=== PATIENT | male | born 1970 | race American Indian/Alaskan Native ===

== ENCOUNTER 2016-11-19 09:20 | Day surgery (SDC) | payer MEDICARE ==
[2016-11-19] MEDS ORDERED: DIPRIVAN 10 MG/ML IV ONE ×3 (09:59→12:20)
[2016-11-19] MEDS ORDERED: NACL 0.9% 1000 ML 1,000 ML IV SCH (10:00)
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
--- NOTE | 2016-11-19 10:09 | Anesthesia Day of Surgery ---
Anesthesia Day of Surgery - Day of Surgery Patient Examined: Yes Patient H&P Reviewed: Yes Patient is NPO: Yes
[2016-11-19] MEDS ORDERED: WATER FOR IRRIG STERILE IR ONE (10:24)
--- NOTE | 2016-11-19 12:39 | Operative Report ---
Operative Report Operative Report: Date of procedure: 11/19/2016 Procedure: Colonoscopy with multiple hot biopsy polypectomies and also multiple polyp ablations Attending physician: Michael Castillo MD Bottle Dealer: Michael Castillo MD Indication: Patient is a 46-year-old male who presents with a family history of colorectal cancer. A colonoscopy is done to assess patient so that treatment may be directed based on findings. Consent: Informed consent was obtained after advising the patient and family regarding nature of this procedure, its indications, potential benefits as well as possible complications including but not limited to bleeding perforation and adverse reaction to medication, infection as well as other cardiopulmonary complications. An informed written and verbal consent was then obtained after due opportunity was provided for questions and answers. Monitoring: Patient was monitored continuously with pulse oximetry and electrocardiographic recordings as well as blood pressure recordings. Vital signs remained stable throughout this procedure with no untoward events. Preoperative assessment: Patient was assessed immediately prior to this procedure for capacity to tolerate monitored anesthesia care and moderate sedation as well as general anesthesia. Patient's ASA classification is 2, Mallampati class is 2, Hyomental distance is 3. Instrument: [employer] videocolonoscope Medications: Propofol given intravenously in divided doses. For details please refer to anesthesia records. Description of procedure: Patient was placed in the left lateral decubitus position after achieving sedation, a digital rectal examination was performed following which the colonoscope was introduced into the anal verge and advanced to the cecum which was identified by the cecal valve, the appendiceal orifice, as well as by the cecal strap and direct transillumination. The colonoscope was subsequently withdrawn with careful inspection of all mucosal surfaces. Patient tolerated this procedure well and was subsequently taken to the recovery room. The following findings were noted. Findings: There was densely adherent thick liquid stool in the cecum and ascending colon. This made visualization of this area is very difficult and in fact suboptimal. There were multiple polyps seen in the descending colon, sigmoid colon and in the rectum. Most of these polyps were removed by hot biopsy polypectomy. About 16 polyp biopsy specimens were obtained from the sigmoid colon. Also multiple polyps removed by hot biopsy from the rectum and the descending colon. Multiple polyps were also ablated in the sigmoid colon and in the rectum. Patient had some residual stool in these areas that made the visualization suboptimal. It is therefore felt that patient may have residual polyps in these areas. On the retroflex view at the anal verge, patient had prominent internal hemorrhoids Impression: Multiple colon polyps status post hot biopsy polypectomy and ablation. Multiple rectal polyps status post hot biopsy polypectomy and ablation. Internal hemorrhoids. Plan: Follow pathology report Consider repeat colonoscopy in 3-6 months. Patient may also need multiple colonoscopies until his colon can be cleared of polyps
[2016-11-19 12:48] VITALS: BP 120/69
--- NOTE | 2016-11-19 13:13 | Discharge Summary ---
Short Stay Discharge Plan Activity: advance as tolerated Weight Bearing Status: Weight Bear as Tolerated Diet: regular Additional Instructions: Post Sedation D/C Instructions When you return home you may resume your regular diet unless otherwise directed. -Go directly home from the hospital and rest quietly. You may resume normal activities tomorrow. -Do NOT drive, return to work, operate any machinery or make any important personal or business decisions today. -Do NOT drink any alcohol or take nerve or sleeping drugs. They add to the effects of the medicine still present in your body. Follow up with Dr. Castillo to obtain pathology results. Follow up with: RAYMOND ANAND MD [Primary Care Provider] - 7 Days
--- NOTE | 2016-11-19 14:03 | Post Anesthesia Evaluation ---
- Post Anesthesia Evaluation Patient Participated: Yes Airway Patent: Yes Stable Respiratory Function: Yes Nausea/Vomiting: No Temp > 96.8F: Yes Pain Manageable: Yes Adequeate Hydration: Yes Anesthesia Complications: No Block Receding Appropriately: Not Applicable Patient on Ventilator: No
== END 2016-11-19 09:21 | disposition home or self-care (01) ==
LOC: GIO 09:20
PROVIDERS: ATTEND Internal Medicine Gastroenterology
DX: Z12.11 Encounter for screening for malignant neoplasm of colon (principal); D12.2 Benign neoplasm of ascending colon; K63.5 Polyp of colon; K62.1 Rectal polyp; K64.8 Other hemorrhoids; F41.9 Anxiety disorder, unspecified; M19.90 Unspecified osteoarthritis, unspecified site; F32.9 Major depressive disorder, single episode, unspecified; I10 Essential (primary) hypertension; K21.9 Gastro-esophageal reflux disease without esophagitis; F07.81 Postconcussional syndrome; Z80.0 Family history of malignant neoplasm of digestive organs; Z82.49 Family history of ischemic heart disease and other diseases of the circulatory system; Z80.3 Family history of malignant neoplasm of breast; Z80.42 Family history of malignant neoplasm of prostate; Z98.41 Cataract extraction status, right eye
CPT/HCPCS: 45384; 45388; 88305; J2704; J7030